=== PATIENT | male | born 1955 | race Caucasian/White ===

== ENCOUNTER → 2016-11-16 | Outpatient (REF) ==
[~2016-11-16] MED LIST: AMBIEN 10MG10 MG PO; CARDIZEM CD240 MG PO; HCTZ 25MG25 MG PO; LISINOPRIL10 MG PO; PROTONIX 40MG T40 MG PO; SILDENAFIL; [UNRECOGNIZED DRUG - REMARK]; testosterone gel
== END ==
LOC: WSOH 15:01
DX: Z00.00 Encounter for general adult medical examination without abnormal findings (principal)
CPT/HCPCS: G0463